=== PATIENT | male | born 1950 ===

== ENCOUNTER 2018-05-25 16:20 | Emergency (ER) | payer MEDICARE ==
[2018-05-25 16:20] VITALS: BMI 24.5
[2018-05-25 16:53] VITALS: TEMP 97.3; O2SAT 98
[2018-05-25] MEDS ORDERED: Fluorescein 1 mg Ophthalmic Strip OD ONE (17:03)
[2018-05-25] MEDS ORDERED: Fluorescein 1 mg Ophthalmic Strip ONE (17:09)
--- NOTE | 2018-05-25 17:15 | ED PDOC ---
HPI: Eye Injury/Pain Time Seen by Provider: 05/25/18 16:59 Chief Complaint (Nursing): Eye Problem Chief Complaint (Provider): Eye Problem History Per: Patient History/Exam Limitations: no limitations Onset/Duration Of Symptoms: Days (x2) Current Symptoms Are (Timing): Still Present Additional Complaint(s): Patient is a 68 y/o male with an extensive PMHx who presents to the ED for evaluation of right eye pain ongoing for the past two days. Patient states he had rubbed his eye and immediately after began experiencing increased tearing. Patient also reports light sensitivity. Patient denies trauma, fever, discharge, and visual changes. PCP: None Provided Past Medical History Reviewed: Historical Data, Nursing Documentation, Vital Signs Vital Signs: Last Vital Signs Temp 97.3 F L 05/25/18 16:49 Pulse 84 05/25/18 16:49 Resp 16 05/25/18 16:49 BP 102/64 05/25/18 16:49 Pulse Ox 98 05/25/18 16:49 - Medical History PMH: Anxiety, Depression, Diabetes, HTN, Hypercholesterolemia, Chronic Pain (Bilateral Leg Pain) Denies: Chronic Kidney Disease - Surgical History Surgical History: No Surg Hx - Family History Family History: States: Unknown Family Hx - Immunization History Hx Tetanus Toxoid Vaccination: No Hx Influenza Vaccination: No Hx Pneumococcal Vaccination: No - Home Medications Home Medications: Ambulatory Orders Medication Instructions Recorded Insulin Human NPH [Humalin N] 20 units SC DAILY 04/26/15 Metformin HCl 1,000 mg PO BID 04/26/15 Aspirin [Adult Low Dose Aspirin EC] 81 mg PO DAILY 11/26/15 Gabapentin 300 mg PO BID 11/26/15 Simvastatin 5 mg PO DAILY 11/26/15 Benzonatate [Tessalon Perle] 100 mg PO BID PRN #14 capsule 08/09/17 amLODIPine [Norvasc] 5 mg PO DAILY #14 tab 08/09/17 Ciprofloxacin 0.3% [Ciloxan 0.3% 1 - 2 drop RIGHTEYE Q4H #1 bottle 05/25/18 Radha HINOJOSA] - Allergies Allergies/Adverse Reactions: Allergies Allergy/AdvReac Type Severity Reaction Status Date / Time No Known Allergies Allergy Verified 05/25/18 16:49 Review of Systems ROS Statement: Except As Marked, All Systems Reviewed And Found Negative Constitutional: Negative for: Fever Eyes: Positive for: Pain (Right), Other (Light Sensitivity). Negative for: Vision Change (or discharge) Physical Exam - Reviewed Nursing Documentation Reviewed: Yes Vital Signs Reviewed: Yes - Physical Exam Appears: Positive for: No Acute Distress Head Exam: Positive for: ATRAUMATIC, NORMAL INSPECTION, NORMOCEPHALIC Eye Exam: Positive for: Normal appearance (with no hyphema), EOMI (without vicky n), PERRL, Conjunctival injection (mild on right eye), Other (fluorescein linear uptake at 6 o'clock of right cornea). Negative for: Periorbital swelling, Periorbital tenderness Neurological/Psych: Positive for: Alert, Oriented (x3) - ECG O2 Sat by Pulse Oximetry: 98 (RA) Pulse Ox Interpretation: Normal Medical Decision Making Medical Decision Making: Time: 1702 Impression: Corneal Abrasion Plan: [id number] 1 mg OD Time: 1714 Patient advised to followup with Dr. Schroeder before using contact lenses again. Scribe Attestation: Documented by Rajat Roberts, acting as a scribe Ayaz Vitale PA-C. Provider Scribe Attestation: All medical record entries made by the Scribe were at my direction and personally dictated by me. I have reviewed the chart and agree that the record accurately reflects my personal performance of the history, physical exam, medical decision making, and the department course for this patient. I have also personally directed, reviewed, and agree with the discharge instructions and disposition. Disposition - Clinical Impression Clinical Impression: Corneal abrasion - Patient ED Disposition Is Patient to be Admitted: No - Disposition Referrals: Evelio Schroeder MD [Staff Provider] - [facility] [Outside] Disposition: Routine/Home Disposition Time: 17:12 Condition: STABLE Additional Instructions: FOLLOW UP WITH DR. SCHROEDER (EYE DOCTOR) FOR FURTHER EVALUATION RETURN TO ED IMMEDIATELY IF SYMPTOMS WORSEN DO NOT WEAR YOUR CONTACT LENSES UNTIL CLEARED BY AN EYE DOCTOR SUPRIYA WELCH, thank you for letting us take care of you today. Your provider was Michael Gallo III, DO and you were treated for RT EYE IRRITATION. The emergency medical care you received today was directed at your acute symptoms. If you were prescribed any medication, please fill it and take as directed. It may take several days for your symptoms to resolve. Return to the Emergency Department if your symptoms worsen, do not improve, or if you have any other problems. Please contact your doctor or call one of the physicians/clinics you have been referred to that are listed on the Patient Visit Information form that is included in your discharge packet. Bring any paperwork you were given at discharge with you along with any medications you are taking to your follow up visit. Our treatment cannot replace ongoing medical care by a primary care provider outside of the emergency department. Thank you for allowing the [facility] team to be part of your care today. If you had an X-Ray or CT scan: A Radiologist will review the ED reading if any change in treatment is needed we will contact you. If you had a blood, urine, or wound culture: It will take several days for the results, if any change in treatment is needed we will contact you. If you had an STI test: It will take 48 hours for the results. Please call after 1 week if you have not heard back. Prescriptions: Ciprofloxacin 0.3% [Ciloxan 0.3% Ophth SOLN] 1 - 2 drop RIGHTEYE Q4H #1 bottle Instructions: Corneal Abrasion (DC) Forms: [employer] (Frisian) Print Language: SLOVENIAN
[2018-05-25 17:45] VITALS: BP 106/70; PULSE 80; RESP 18
== END 2018-05-25 17:34 | disposition home or self-care (01) ==
LOC: H.ER 16:20
DX: S05.01XA Injury of conjunctiva and corneal abrasion without foreign body, right eye, initial encounter (principal); E11.9 Type 2 diabetes mellitus without complications; Z86.59 Personal history of other mental and behavioral disorders; G89.29 Other chronic pain; I10 Essential (primary) hypertension